=== PATIENT | male | born 1955 | race African-American/Black ===

== ENCOUNTER → 2016-08-01 | Outpatient (CLI) | payer OTHER ==
[~2016-08-01] MED LIST: BLOOD PRESSURE; METFORMIN1000 MG PO; NAPROSYN500 MG PO; VICODIN 5-3001 EACH PO
[2016-08-02 20:08] LABS: TESTOSTERONE FREE, (DIRECT) 6.3 pg/mL (6.6-18.1)
== END | disposition home or self-care (01) ==
LOC: LAB 09:49
PROVIDERS: Family Medicine
DX: N52.9 Male erectile dysfunction, unspecified (principal)

== ENCOUNTER → 2018-12-14 | Outpatient (CLI) | payer OTHER, MEDICARE ==
[~2018-12-14] MED LIST changes: +AMLODIPINE BESY10 MG PO; +ATORVASTATIN CA80 M1 PO; +BENZONATATE200 MG PO; +ENALAPRIL20 MG PO; +FLOMAX0.4 MG PO; +GLIPIZIDE5 MG PO; +IBU800 MG PO; +JANUMET 50-1,01 EACH PO; +LASIX40 MG PO; +VITAMIN D250 MCG PO
--- NOTE | ~2018-12-14 | ST ---
[place], [place] EXERCISE STRESS TEST REPORT NAME[id number] UNIT #: [id number] ROOM: DOCTOR: ENRRIQUE HARLEY MD BIRTHDATE: [birth year] DOS: 12/14/2018 LEXISCAN PORTION OF THE LEXISCAN CARDIOLITE Baseline cardiogram, sinus rhythm with poor R-wave progression, 0.4 mg Lexiscan, duration of 10 seconds. With Lexiscan, no new EKG changes. No chest pain. Blood pressure and heart rate responses normal. FINAL IMPRESSION: No EKG changes with Lexiscan. No chest pain with Lexiscan. Blood pressure and heart rate response was normal. Nuclear images will be reported separately. ENRRIQUE HARLEY MD CM:STRESS:EXERCISE STRESS TEST REPORT [id number] ENRRIQUE HARLEY MD
--- NOTE | 2018-12-14 07:04 | NUR ---
INFORMED SIGNED CONSENT OBTAINED FOR LEXISCAN STRESS TEST WITH DR HARLEY. RESTING EKG SINUS TACHYCARDIA HR 106 BP 122/80. PULSE OX 95% LUNGS CLEARLY DIMINISHED. PT COMPLETED ONE MINUTE OF A LEXISCAN PROTOCOL WITH PT RECEIVING LEXISCAN 0.4MG IV OVER 10 SECONDS. HAD NO SYMPTOMS WITH INJECTION. NO ARRHYTHMIAS OR ST CHANGES NOTED. LAST RECOVERY HR OF 101 BP 120/80.
== END | disposition home or self-care (01) ==
LOC: CARD 01:29
DX: R07.89 Other chest pain (principal); R53.81 Other malaise

== ENCOUNTER → 2019-03-22 | Outpatient (CLI) | payer OTHER, MEDICARE | END | disposition home or self-care (01) | LOC: CARD 12-23 15:00 | DX: I08.0 Rheumatic disorders of both mitral and aortic valves (principal); I42.9 Cardiomyopathy, unspecified ==